=== PATIENT | male | born 1940 | race Caucasian/White ===

== ENCOUNTER 2024-07-30 17:26 | Emergency (ER) | payer MEDICARE ==
[~2024-07-30] VITALS: Ht 188 cm; Wt 88.0 kg
[2024-07-30] MEDS ORDERED: BISOPROLOL FUMAR5 MG PO (19:35)
[2024-07-30] MEDS ORDERED: ROSUVASTATIN CA20 MG PO (19:35)
[2024-07-30] MEDS ORDERED: COZAAR25 MG PO (19:35)
[2024-07-30] MEDS ORDERED: [UNRECOGNIZED DRUG - OTHER] PO (19:36)
[2024-07-30] MEDS ORDERED: PROSCAR5 MG PO (19:36)
[2024-07-30] MEDS ORDERED: FLOMAX0.4 MG PO (19:36)
[2024-07-30] MEDS ORDERED: GLIPIZIDE5 MG PO (19:37)
[2024-07-30] MEDS ORDERED: CEPHALEXIN500 M1 PO (20:56)
[2024-07-30] MEDS ORDERED: CEPHALEXIN MONOHYDRATE 500 MG HOME.PACK PO ONE (21:00)
[2024-07-30 21:10] VITALS: BP 165/86
== END 2024-07-30 21:10 | disposition home or self-care (01) ==
LOC: ED 17:26
DX: S90.212A Contusion of left great toe with damage to nail, initial encounter (principal); S90.222A Contusion of left lesser toe(s) with damage to nail, initial encounter; X58.XXXA Exposure to other specified factors, initial encounter; I10 Essential (primary) hypertension; I25.2 Old myocardial infarction; E11.9 Type 2 diabetes mellitus without complications; Z79.899 Other long term (current) drug therapy; Z79.84 Long term (current) use of oral hypoglycemic drugs
CPT/HCPCS: 11740; 99283-25; A9270